=== PATIENT | male | born 1955 | race Hispanic/Latino ===

== ENCOUNTER → 2018-01-16 | Outpatient (CLI) | payer MEDICAID | END | disposition home or self-care (01) | LOC: SHCH 15:12 | PROVIDERS: ATTEND Internal Medicine Cardiovascular Disease | DX: I87.2 Venous insufficiency (chronic) (peripheral) (principal) | CPT/HCPCS: 93970 ==

== ENCOUNTER 2018-01-18 17:25 | Emergency (ER) | payer MEDICAID, MEDICARE ==
[2018-01-18 18:06] LABS: BASOPHILS % (AUTO) 0.4 % (0.0-5.0); EOSINOPHILS % (AUTO) 2.5 % (0.0-8.0); HEMATOCRIT 45.9 % (42-54); LYMPHOCYTES % (AUTO) 24.1 % (21.0-51.0); MEAN CORPUSCULAR HEMOGLOBIN 30.7 pg (27.0-33.0); MEAN CORPUSCULAR HGB CONC 33.8 g/dL (32.0-36.0); MEAN CORPUSCULAR VOLUME 90.9 fL (79-99); MONOCYTES % (AUTO) 5.6 % (3.0-13.0); NEUTROPHILS % (AUTO) 67.4 % (40.0-77.0); PLATELET COUNT (AUTO) 208 K/uL (130-400); RED BLOOD CELL COUNT(AUTO) 5.05 MIL/uL (4.50-6.20); RED CELL DISTRIBUTION WIDTH 14.1 % (11.0-15.5); WHITE BLOOD COUNT (AUTO) 8.6 K/uL (4.8-10.8)
[2018-01-18 18:10] LABS: CREATININE 0.9 mg/dL (0.5-1.5); POTASSIUM 3.7 mmol/L (3.5-5.1)
[2018-01-18 18:17] LABS: ALBUMIN 3.5 g/dL (3.5-5.0); BILIRUBIN,TOTAL 0.5 mg/dL (0.2-1.0); PHENYTOIN (DILANTIN) 0.6 mcg/mL (10.0-20.0); TOTAL PROTEIN, SERUM 7.2 g/dL (6.0-8.3)
[2018-01-18] MEDS ORDERED: TETANUS/DIPHTHERIA TOXOID [ADULT] 0.5 ML VIAL IM ONE (18:41)
[2018-01-18] MEDS ORDERED: FOSPHENYTOIN SODIUM 500 MG/10ML VIAL IJ ONE (18:51)
[2018-01-18] MEDS ORDERED: SODIUM CHLORIDE 0.9% 100 ML IV ONE (18:51)
== END 2018-01-18 21:17 | disposition home or self-care (01) ==
LOC: EDH 17:25
DX: S10.81XA Abrasion of other specified part of neck, initial encounter (principal); G40.909 Epilepsy, unspecified, not intractable, without status epilepticus; R89.2 Abnormal level of other drugs, medicaments and biological substances in specimens from other organs, systems and tissues; X58.XXXA Exposure to other specified factors, initial encounter; Y93.89 Activity, other specified; Y92.89 Other specified places as the place of occurrence of the external cause; Y99.8 Other external cause status
CPT/HCPCS: 36415; 70450; 80053; 80185; 85025; 90471; 90714; 93005; 96365; 96366; 99285; Q2009

== ENCOUNTER → 2018-08-18 | Outpatient (CLI) | payer MEDICAID | END | disposition home or self-care (01) | LOC: OIH 13:39 | PROVIDERS: ATTEND Internal Medicine | DX: R91.8 Other nonspecific abnormal finding of lung field (principal); R91.1 Solitary pulmonary nodule; M47.815 Spondylosis without myelopathy or radiculopathy, thoracolumbar region; I70.0 Atherosclerosis of aorta | CPT/HCPCS: 71046 ==

== ENCOUNTER → 2019-03-27 | Outpatient (CLI) | payer MEDICAID | LOC: OIH 14:05 | PROVIDERS: ATTEND Anesthesiology | DX: M19.012 Primary osteoarthritis, left shoulder (principal); M19.011 Primary osteoarthritis, right shoulder | CPT/HCPCS: 73030 ==

== ENCOUNTER 2019-07-05 06:30 | Emergency (ER) | payer MEDICAID ==
[2019-07-05] MEDS ORDERED: FENTANYL 25 MCG/HR PATCH TD ONE (07:32)
== END 2019-07-05 07:48 | disposition home or self-care (01) ==
LOC: EDH 06:30
DX: G89.29 Other chronic pain (principal); M54.5 Low back pain; T40.691A Poisoning by other narcotics, accidental (unintentional), initial encounter; E78.5 Hyperlipidemia, unspecified; I10 Essential (primary) hypertension; Y92.89 Other specified places as the place of occurrence of the external cause

== ENCOUNTER 2019-11-12 12:16 | Emergency (ER) | payer MEDICAID ==
[2019-11-12] MEDS ORDERED: FENTANYL 50 MCG/HR PATCH TD ONE (13:00)
== END 2019-11-12 13:38 | disposition home or self-care (01) ==
LOC: EDH 12:16
DX: M54.5 Low back pain (principal); E78.5 Hyperlipidemia, unspecified; I10 Essential (primary) hypertension; Z72.0 Tobacco use

== ENCOUNTER 2019-11-17 09:37 | Emergency (ER) | payer MEDICAID ==
[2019-11-17] MEDS ORDERED: IBUPROFEN 400 MG TABLET ONE (10:00)
[2019-11-17] MEDS ORDERED: IBUPROFEN 200 MG TAB ONE (10:00)
[2019-11-17] MEDS ORDERED: CYCLOBENZAPRINE HCL 10 MG TABLET ONE (10:00)
== END 2019-11-17 10:38 | disposition left against medical advice (07) ==
LOC: EDH 09:37
DX: G89.29 Other chronic pain (principal); M54.5 Low back pain; E78.5 Hyperlipidemia, unspecified; I10 Essential (primary) hypertension; Z72.0 Tobacco use
CPT/HCPCS: 99281

== ENCOUNTER 2019-11-18 07:25 | Emergency (ER) | payer MEDICAID ==
[2019-11-18] MEDS ORDERED: ASPIRIN 325 MG TABLET ONE (07:53)
[2019-11-18 09:25] LABS: BASOPHILS % (AUTO) 0.6 % (0.0-5.0); EOSINOPHILS % (AUTO) 2.8 % (0.0-8.0); HEMATOCRIT 48.9 % (42-54); LYMPHOCYTES % (AUTO) 26.7 % (21.0-51.0); MEAN CORPUSCULAR HEMOGLOBIN 30.3 pg (27.0-33.0); MEAN CORPUSCULAR HGB CONC 34.6 g/dL (32.0-36.0); MEAN CORPUSCULAR VOLUME 87.6 fL (79-99); MONOCYTES % (AUTO) 5.6 % (3.0-13.0); NEUTROPHILS % (AUTO) 63.6 % (40.0-77.0); PLATELET COUNT (AUTO) 207 K/uL (130-400); RED BLOOD CELL COUNT(AUTO) 5.58 MIL/uL (4.50-6.20); RED CELL DISTRIBUTION WIDTH 13.8 % (11.0-15.5); WHITE BLOOD COUNT (AUTO) 13.1 K/uL (4.8-10.8)
[2019-11-18 10:39] LABS: CREATININE 0.9 mg/dL (0.5-1.5); POTASSIUM 3.9 mmol/L (3.5-5.1)
[2019-11-18 10:45] LABS: ALBUMIN 3.4 g/dL (3.5-5.0); BILIRUBIN,TOTAL 0.4 mg/dL (0.2-1.0); TOTAL PROTEIN, SERUM 6.7 g/dL (6.0-8.3)
== END 2019-11-18 10:38 | disposition left against medical advice (07) ==
LOC: EDH 07:25
DX: G89.29 Other chronic pain (principal); M54.5 Low back pain; R07.89 Other chest pain; E78.5 Hyperlipidemia, unspecified; I10 Essential (primary) hypertension; Z72.0 Tobacco use
CPT/HCPCS: 36415; 71045; 80053; 82550; 84484; 85025; 93005

== ENCOUNTER 2019-12-16 18:47 | Emergency (ER) | payer MEDICAID ==
[2019-12-16] MEDS ORDERED: TETRACAINE HCL 0.5% 4 ML OPHTH SOLN ONE (19:26)
[2019-12-16] MEDS ORDERED: NA BORATE/BORIC AC/H2O/NACL 120 ML OPHTH IRRIG SOLN ONE (19:26)
[2019-12-16] MEDS ORDERED: FLUORESCEIN SODIUM 1 STRIP STRIP ONE (19:27)
[2019-12-16] MEDS ORDERED: TETANUS/DIPHTHERIA TOXOID [ADULT] 0.5 ML VIAL IM ONE (19:39)
== END 2019-12-16 20:08 | disposition home or self-care (01) ==
LOC: EDH 18:47
DX: S05.01XA Injury of conjunctiva and corneal abrasion without foreign body, right eye, initial encounter (principal); I10 Essential (primary) hypertension; E78.5 Hyperlipidemia, unspecified; Z72.0 Tobacco use; X58.XXXA Exposure to other specified factors, initial encounter; Y93.89 Activity, other specified; Y92.89 Other specified places as the place of occurrence of the external cause; Y99.8 Other external cause status
CPT/HCPCS: 90471; 90714

== ENCOUNTER 2020-04-06 03:32 | Emergency (ER) | payer MEDICAID ==
[2020-04-06] MEDS ORDERED: KETOROLAC TROMETHAMINE 15MG/ML ONE (04:08)
[2020-04-06] MEDS ORDERED: FENTANYL 75 MCG/HR PATCH TD ONE (04:09)
== END 2020-04-06 04:48 | disposition home or self-care (01) ==
LOC: EDH 03:32
DX: M54.2 Cervicalgia (principal); E78.5 Hyperlipidemia, unspecified; I10 Essential (primary) hypertension
CPT/HCPCS: 96374; 99283; J1885

== ENCOUNTER 2020-11-29 05:21 | Emergency (ER) | payer MEDICAID ==
[2020-11-29] MEDS ORDERED: HYDROMORPHONE 1 MG/1 ML AMP ONE (06:42)
== END 2020-11-29 06:53 | disposition home or self-care (01) ==
LOC: EDH 05:21
DX: G89.29 Other chronic pain (principal); M54.9 Dorsalgia, unspecified; M54.2 Cervicalgia; E78.5 Hyperlipidemia, unspecified; I10 Essential (primary) hypertension; Z72.0 Tobacco use
CPT/HCPCS: 96372; 99283; J1170

== ENCOUNTER 2021-02-07 01:07 | Emergency (ER) | payer MEDICAID ==
[~2021-02-07] VITALS: Ht 172.7 cm; Wt 77.1 kg
[2021-02-07 01:50] VITALS: BP 141/72
[2021-02-07] MEDS ORDERED: DIAZEPAM 2 MG TAB PO ONE (02:00)
[2021-02-07] MEDS ORDERED: LIDOCAINE 5% TOPICAL PATCH TP ONE (02:00)
[2021-02-07] MEDS ORDERED: KETOROLAC 60 MG VIAL (30MG/ML) IM ONE (02:00)
== END 2021-02-07 03:06 | disposition home or self-care (01) ==
LOC: EDH 01:07
DX: M54.2 Cervicalgia (principal); G89.29 Other chronic pain; M54.5 Low back pain; I10 Essential (primary) hypertension; Z79.1 Long term (current) use of non-steroidal anti-inflammatories (NSAID)
CPT/HCPCS: 96372; 99283; J1885

== ENCOUNTER 2021-10-29 02:43 | Emergency (ER) | payer OTHER, MEDICARE ==
[~2021-10-29] VITALS: Ht 167.6 cm; Wt 79.4 kg
[2021-10-29 03:24] LABS: APPEARANCE,URINE Clear (CLEAR); BILIRUBIN,URINE Negative (NEGATIVE); COLOR,URINE Yellow (YELLOW); GLUCOSE, URINE (UA) Negative (NEGATIVE); KETONES,URINE Negative (NEGATIVE); LEUKOCYTE ESTERASE ,URINE Negative (NEGATIVE); NITRATE,URINE Negative (NEGATIVE); OCCULT BLOOD,URINE Negative (NEGATIVE); PROTEIN,URINE Negative (NEGATIVE)
[2021-10-29 03:38] LABS: BASOPHILS % (AUTO) 0.4 % (0.0-5.0); EOSINOPHILS % (AUTO) 0.5 % (0.0-8.0); HEMATOCRIT 48.1 % (42-54); LYMPHOCYTES % (AUTO) 25.7 % (21.0-51.0); MEAN CORPUSCULAR HEMOGLOBIN 29.9 pg (27.0-33.0); MEAN CORPUSCULAR HGB CONC 32.4 g/dL (32.0-36.0); MEAN CORPUSCULAR VOLUME 92.3 fL (79-99); MONOCYTES % (AUTO) 8.6 % (3.0-13.0); NEUTROPHILS % (AUTO) 63.5 % (40.0-77.0); PLATELET COUNT (AUTO) 183 K/uL (130-400); RED BLOOD CELL COUNT(AUTO) 5.21 MIL/uL (4.50-6.20); RED CELL DISTRIBUTION WIDTH 15.3 % (11.0-15.5); WHITE BLOOD COUNT (AUTO) 11.5 K/uL (4.8-10.8)
[2021-10-29 03:49] LABS: CREATININE 0.8 mg/dL (0.5-1.5); POTASSIUM 3.9 mmol/L (3.5-5.1)
[2021-10-29 03:56] LABS: ALBUMIN 3.2 g/dL (3.5-5.0); BILIRUBIN,TOTAL 0.8 mg/dL (0.2-1.0); TOTAL PROTEIN, SERUM 6.4 g/dL (6.0-8.3)
[2021-10-29 04:56] VITALS: BP 126/59
[2021-10-29] MEDS ORDERED: FENTANYL 75 MCG/HR PATCH TD ONE (05:00)
[2021-10-29 05:16] LABS: MAGNESIUM 2.4 mg/dL (1.80-2.40); THYROID STIMULATING HORMONE 4.46 uIU/mL (0.36-3.74)
== END 2021-10-29 06:10 | disposition home or self-care (01) ==
LOC: EDH 02:43
DX: G89.29 Other chronic pain (principal); R53.1 Weakness; R94.6 Abnormal results of thyroid function studies; I10 Essential (primary) hypertension
CPT/HCPCS: 36415; 71045; 80053; 81003; 82550; 83735; 83880; 84443; 84484; 85025; 93005

== ENCOUNTER 2021-11-21 23:09 | Emergency (ER) | payer MEDICARE ==
[~2021-11-21] VITALS: Ht 167.6 cm; Wt 79.4 kg
[2021-11-21 23:18] VITALS: BP 94/43
[2021-11-21] MEDS ORDERED: CYCL10TA16 PO (23:47)
[2021-11-21] MEDS ORDERED: GABA300C PO (23:47)
[2021-11-22] MEDS ORDERED: FENTANYL CITRATE PF 50 MCG/1 ML 2ML VIAL IVP ONE
[2021-11-22] MEDS ORDERED: CYCLOBENZAPRINE HCL 10 MG TABLET PO ONE
== END 2021-11-22 00:10 | disposition home or self-care (01) ==
LOC: EDH 23:09
DX: M54.6 Pain in thoracic spine (principal); M54.50 Low back pain, unspecified; M54.10 Radiculopathy, site unspecified; M79.603 Pain in arm, unspecified; M79.606 Pain in leg, unspecified; I10 Essential (primary) hypertension; Z98.890 Other specified postprocedural states
CPT/HCPCS: 96374; 99283; J3010

== ENCOUNTER 2021-11-28 01:45 | Emergency (ER) | payer MEDICARE ==
[~2021-11-28] VITALS: Ht 167.6 cm; Wt 80.7 kg
[~2021-11-28 01:45] MED LIST: CYCL10TA16 PO; GABA300C PO
[2021-11-28] MEDS ORDERED: OXYCODONE/ACETAMIN 5/325MG TAB PO ONE (03:00)
[2021-11-28] MEDS ORDERED: PERCT10 PO ×2 (03:20→03:21)
[2021-11-28 03:26] VITALS: BP 150/71
== END 2021-11-28 03:27 | disposition home or self-care (01) ==
LOC: EDH 01:45
DX: G89.29 Other chronic pain (principal); M54.2 Cervicalgia; I10 Essential (primary) hypertension

== ENCOUNTER 2021-11-28 11:47 | Emergency (ER) | payer MEDICARE ==
[~2021-11-28] VITALS: Ht 167.6 cm; Wt 79.4 kg
[~2021-11-28 11:47] MED LIST changes: +PERCT10 PO
[2021-11-28] MEDS ORDERED: HYDROCODONE/ACETAMINOPHEN 10/325 MG TAB PO ONE (13:00)
[2021-11-28 13:09] VITALS: BP 158/78
== END 2021-11-28 13:17 | disposition home or self-care (01) ==
LOC: EDH 11:47
DX: G89.29 Other chronic pain (principal); M54.6 Pain in thoracic spine; I10 Essential (primary) hypertension

== ENCOUNTER 2021-11-29 01:27 | Emergency (ER) | payer OTHER, MEDICARE ==
[~2021-11-29] VITALS: Ht 167.6 cm; Wt 80.3 kg
[2021-11-29 01:42] VITALS: BP 151/80
[2021-11-29] MEDS ORDERED: OXYCODONE/ACETAMIN 5/325MG TAB ONE (03:04)
[2021-11-29] MEDS ORDERED: OXYCODONE/ACETAMIN 5/325MG TAB PO ONE (03:30)
== END 2021-11-29 03:13 | disposition home or self-care (01) ==
LOC: EDH 01:27
DX: G89.29 Other chronic pain (principal); M54.9 Dorsalgia, unspecified; M54.2 Cervicalgia; E78.00 Pure hypercholesterolemia, unspecified; I10 Essential (primary) hypertension; Z98.890 Other specified postprocedural states; Z79.899 Other long term (current) drug therapy

== ENCOUNTER 2021-11-29 11:09 | Emergency (ER) | payer MEDICARE ==
[~2021-11-29] VITALS: Ht 167.6 cm; Wt 79.4 kg
[2021-11-29 11:13] VITALS: BP 142/54
[2021-11-29] MEDS ORDERED: LORAZEPAM 2 MG/ML 1 ML VIAL IVP ONE (13:30)
== END 2021-11-29 14:05 | disposition left against medical advice (07) ==
LOC: EDH 11:09
DX: G89.29 Other chronic pain (principal); M54.6 Pain in thoracic spine; Z53.21 Procedure and treatment not carried out due to patient leaving prior to being seen by health care provider

== ENCOUNTER 2021-11-29 15:13 | Emergency (ER) | payer OTHER, MEDICARE ==
[~2021-11-29] VITALS: Ht 167.6 cm; Wt 79.4 kg
[2021-11-29 15:18] VITALS: BP 129/69
== END 2021-11-29 17:31 | disposition home or self-care (01) ==
LOC: EDH 15:13
DX: G89.29 Other chronic pain (principal); M54.6 Pain in thoracic spine; Z53.21 Procedure and treatment not carried out due to patient leaving prior to being seen by health care provider

== ENCOUNTER 2022-01-21 03:26 | Emergency (ER) | payer OTHER, MEDICARE ==
[~2022-01-21] VITALS: Ht 167.6 cm; Wt 82.6 kg
[2022-01-21] MEDS ORDERED: KETOROLAC 15MG/ML VIAL (15MG/ML) IV ONE (03:30)
[2022-01-21] MEDS ORDERED: FENTANYL 50 MCG/HR PATCH TD SCH (03:30)
[2022-01-21] MEDS ORDERED: FUROSEMIDE 40MG VIAL IV ONE (03:30)
[2022-01-21 03:42] LABS: BASOPHILS % (AUTO) 0.6 % (0.0-5.0); EOSINOPHILS % (AUTO) 3.6 % (0.0-8.0); HEMATOCRIT 46.2 % (42-54); LYMPHOCYTES % (AUTO) 23.2 % (21.0-51.0); MEAN CORPUSCULAR HGB CONC 34.4 g/dL (32.0-36.0); MONOCYTES % (AUTO) 9.6 % (3.0-13.0); NEUTROPHILS % (AUTO) 62.6 % (40.0-77.0); PLATELET COUNT (AUTO) 196 K/uL (130-400); RED BLOOD CELL COUNT(AUTO) 4.97 MIL/uL (4.50-6.20); RED CELL DISTRIBUTION WIDTH 13.6 % (11.0-15.5); WHITE BLOOD COUNT (AUTO) 9.1 K/uL (4.8-10.8)
[2022-01-21 03:56] LABS: CREATININE 0.3 mg/dL (0.5-1.5); POTASSIUM 5.6 mmol/L (3.5-5.1)
[2022-01-21 04:00] LABS: ALBUMIN 3.4 g/dL (3.5-5.0); TOTAL PROTEIN, SERUM 7.1 g/dL (6.0-8.3)
[2022-01-21 04:13] LABS: APPEARANCE,URINE CLEAR (CLEAR); BILIRUBIN,URINE NEGATIVE (NEGATIVE); COLOR,URINE YELLOW (YELLOW); GLUCOSE, URINE (UA) NEGATIVE (NEGATIVE); KETONES,URINE NEGATIVE (NEGATIVE); LEUKOCYTE ESTERASE ,URINE NEGATIVE (NEGATIVE); NITRATE,URINE NEGATIVE (NEGATIVE); PROTEIN,URINE NEGATIVE (NEGATIVE)
[2022-01-21 04:16] LABS: OCCULT BLOOD,URINE NEGATIVE (NEGATIVE)
[2022-01-21 04:26] LABS: B-TYPE NATRIURETIC PEPTIDE 39 pg/mL (0-100)
[2022-01-21] MEDS ORDERED: 0.9%NACL 1000ML 1,000 ML IV ONE (04:30)
[2022-01-21 04:40] VITALS: BP 156/88
== END 2022-01-21 05:01 | disposition home or self-care (01) ==
LOC: EDH 03:26
DX: G89.29 Other chronic pain (principal); M54.6 Pain in thoracic spine; M54.50 Low back pain, unspecified; E87.1 Hypo-osmolality and hyponatremia; E78.00 Pure hypercholesterolemia, unspecified; E86.0 Dehydration; I10 Essential (primary) hypertension; Z98.890 Other specified postprocedural states; Z79.899 Other long term (current) drug therapy
CPT/HCPCS: 99284; 84484; 80053; 83880; 85025; 81003; 36415; 96374; 96361; 96375; J7030; J1940; J1885

== ENCOUNTER 2022-01-27 02:45 | Emergency (ER) | payer OTHER, MEDICARE ==
[~2022-01-27] VITALS: Ht 167.6 cm; Wt 76.2 kg
[2022-01-27 02:51] VITALS: BP 148/76
[2022-01-27] MEDS ORDERED: FENTANYL 75 MCG/HR PATCH TD ONE (03:31)
[2022-01-27] MEDS ORDERED: FENTANYL 12 MCG/HR PATCH TD SCH (04:00)
== END 2022-01-27 03:43 | disposition home or self-care (01) ==
LOC: EDH 02:45
DX: G89.4 Chronic pain syndrome (principal); K42.9 Umbilical hernia without obstruction or gangrene; M19.90 Unspecified osteoarthritis, unspecified site; E78.00 Pure hypercholesterolemia, unspecified; G62.9 Polyneuropathy, unspecified; I10 Essential (primary) hypertension; Z98.890 Other specified postprocedural states; Z79.899 Other long term (current) drug therapy

== ENCOUNTER 2022-02-28 02:14 | Emergency (ER) | payer OTHER, MEDICARE ==
[~2022-02-28] VITALS: Ht 167.6 cm; Wt 77.6 kg
[2022-02-28 02:16] VITALS: BP 133/69
[2022-02-28] MEDS ORDERED: FENTANYL 75 MCG/HR PATCH TD SCH (03:30)
== END 2022-02-28 03:15 | disposition home or self-care (01) ==
LOC: EDH 02:14
DX: G89.4 Chronic pain syndrome (principal); M54.6 Pain in thoracic spine; E78.00 Pure hypercholesterolemia, unspecified; I10 Essential (primary) hypertension; G62.9 Polyneuropathy, unspecified; F17.200 Nicotine dependence, unspecified, uncomplicated; Z79.899 Other long term (current) drug therapy; Z98.890 Other specified postprocedural states

== ENCOUNTER 2022-03-27 02:10 | Emergency (ER) | payer OTHER, MEDICARE ==
[~2022-03-27] VITALS: Ht 167.6 cm; Wt 73.9 kg
[2022-03-27 02:49] VITALS: BP 125/72
[2022-03-27] MEDS ORDERED: FENTANYL 75 MCG/HR PATCH TD SCH (03:30)
== END 2022-03-27 03:43 | disposition home or self-care (01) ==
LOC: EDH 02:10
DX: G89.4 Chronic pain syndrome (principal); I10 Essential (primary) hypertension; F17.210 Nicotine dependence, cigarettes, uncomplicated; E78.00 Pure hypercholesterolemia, unspecified
CPT/HCPCS: 99282

== ENCOUNTER 2022-03-31 12:03 | Emergency (ER) | payer OTHER, MEDICARE ==
[~2022-03-31] VITALS: Ht 167.6 cm; Wt 68.0 kg
[2022-03-31] MEDS ORDERED: 0.9%NACL 1000ML 1,000 ML IV ONE (12:30)
[2022-03-31] MEDS ORDERED: MAG/ALUM/SIMETH 30 ML UDCUP PO ONE (12:30)
[2022-03-31] MEDS ORDERED: LIDOCAINE HCL 2% VISCOUS 15 ML UDCUP PO ONE (12:30)
[2022-03-31] MEDS ORDERED: DICYCLOMINE HCL 10 MG/5 ML ML PO ONE (12:30)
[2022-03-31] MEDS ORDERED: FAMOTIDINE 20MG VIAL IV ONE (12:30)
[2022-03-31] MEDS ORDERED: ONDANSETRON 4MG TABLET PO ONE (12:30)
[2022-03-31 12:32] LABS: APPEARANCE,URINE CLEAR (CLEAR); BILIRUBIN,URINE NEGATIVE (NEGATIVE); COLOR,URINE YELLOW (YELLOW); GLUCOSE, URINE (UA) NEGATIVE (NEGATIVE); KETONES,URINE NEGATIVE (NEGATIVE); LEUKOCYTE ESTERASE ,URINE NEGATIVE (NEGATIVE); NITRATE,URINE NEGATIVE (NEGATIVE); OCCULT BLOOD,URINE TRACE-INTACT (NEGATIVE); PROTEIN,URINE NEGATIVE (NEGATIVE); UROBILINOGEN,URINE 0.2 mg/dL (0.2-1.0)
[2022-03-31 12:35] LABS: BASOPHILS % (AUTO) 0.5 % (0.0-5.0); EOSINOPHILS % (AUTO) 3.9 % (0.0-8.0); LYMPHOCYTES % (AUTO) 20.5 % (21.0-51.0); MEAN CORPUSCULAR HEMOGLOBIN 32.2 pg (27.0-33.0); MEAN CORPUSCULAR HGB CONC 34.7 g/dL (32.0-36.0); MEAN CORPUSCULAR VOLUME 92.8 fL (79-99); MONOCYTES % (AUTO) 11.5 % (3.0-13.0); NEUTROPHILS % (AUTO) 63.2 % (40.0-77.0); PLATELET COUNT (AUTO) 190 K/uL (130-400); RED BLOOD CELL COUNT(AUTO) 4.85 MIL/uL (4.50-6.20); RED CELL DISTRIBUTION WIDTH 13.3 % (11.0-15.5); WHITE BLOOD COUNT (AUTO) 7.9 K/uL (4.8-10.8)
[2022-03-31 12:41] LABS: CREATININE 0.8 mg/dL (0.5-1.5); POTASSIUM 3.6 mmol/L (3.5-5.1)
[2022-03-31 12:45] LABS: ALBUMIN 3.7 g/dL (3.5-5.0); TOTAL PROTEIN, SERUM 7.2 g/dL (6.0-8.3)
[2022-03-31] MEDS ORDERED: ONDA4TAB10 PO (13:18)
[2022-03-31] MEDS ORDERED: LEVO-70 PO (13:18)
[2022-03-31] MEDS ORDERED: DICY20TA2 PO (13:18)
[2022-03-31] MEDS ORDERED: METR375C2 PO (13:18)
[2022-03-31] MEDS ORDERED: METRONIDAZOLE 500 MG TABLET PO SCH (13:30)
[2022-03-31] MEDS ORDERED: LEVOFLOXACIN 500 MG TABLET PO SCH (13:30)
[2022-03-31 13:42] VITALS: BP 117/60
== END 2022-03-31 13:48 | disposition home or self-care (01) ==
LOC: EDH 12:03
DX: I95.1 Orthostatic hypotension (principal); E87.1 Hypo-osmolality and hyponatremia; K52.9 Noninfective gastroenteritis and colitis, unspecified; R11.2 Nausea with vomiting, unspecified; E78.00 Pure hypercholesterolemia, unspecified; I10 Essential (primary) hypertension; G62.9 Polyneuropathy, unspecified; F17.200 Nicotine dependence, unspecified, uncomplicated; Z98.890 Other specified postprocedural states; Z79.899 Other long term (current) drug therapy
CPT/HCPCS: 99284; 96374; 71045; 96361; 84484; 80053; 83690; 85025; 81003; 36415; Q0162; J3490; J7030

== ENCOUNTER 2022-04-23 02:12 | Emergency (ER) | payer OTHER, MEDICARE ==
[~2022-04-23] VITALS: Ht 167.6 cm; Wt 73.9 kg
[~2022-04-23 02:12] MED LIST changes: +DICY20TA2 PO; +LEVO-70 PO; +METR375C2 PO; +ONDA4TAB10 PO
[2022-04-23 02:59] VITALS: BP 139/74
[2022-04-23] MEDS ORDERED: FENTANYL 75 MCG/HR PATCH TD SCH (03:00)
== END 2022-04-23 03:02 | disposition home or self-care (01) ==
LOC: EDH 02:12
DX: G89.4 Chronic pain syndrome (principal); E78.00 Pure hypercholesterolemia, unspecified; I10 Essential (primary) hypertension; M19.90 Unspecified osteoarthritis, unspecified site; Z79.899 Other long term (current) drug therapy; F17.200 Nicotine dependence, unspecified, uncomplicated

== ENCOUNTER 2022-04-28 02:19 | Emergency (ER) | payer OTHER, MEDICARE ==
[~2022-04-28] VITALS: Ht 167.6 cm; Wt 75.3 kg
[2022-04-28 02:46] VITALS: BP 112/65
== END 2022-04-28 03:04 | disposition home or self-care (01) ==
LOC: EDH 02:19
DX: G89.4 Chronic pain syndrome (principal); E78.00 Pure hypercholesterolemia, unspecified; I10 Essential (primary) hypertension; F17.200 Nicotine dependence, unspecified, uncomplicated
CPT/HCPCS: 99281; 99282

== ENCOUNTER 2022-05-18 01:24 | Emergency (ER) | payer OTHER, MEDICARE ==
[~2022-05-18] VITALS: Ht 170.2 cm; Wt 73.9 kg
[2022-05-18 01:44] VITALS: BP 118/53
[2022-05-18] MEDS ORDERED: FENTANYL 75 MCG/HR PATCH TD SCH (02:00)
== END 2022-05-18 02:03 | disposition home or self-care (01) ==
LOC: EDH 01:24
DX: G89.4 Chronic pain syndrome (principal); M19.90 Unspecified osteoarthritis, unspecified site; E78.00 Pure hypercholesterolemia, unspecified; F17.200 Nicotine dependence, unspecified, uncomplicated; I10 Essential (primary) hypertension; Z98.890 Other specified postprocedural states; Z79.899 Other long term (current) drug therapy

== ENCOUNTER 2022-05-20 23:44 | Emergency (ER) | payer OTHER, MEDICARE ==
[~2022-05-20] VITALS: Ht 167.6 cm; Wt 74.8 kg
[2022-05-21] MEDS ORDERED: FENTANYL 100 MCG/HR PATCH TD SCH (01:00)
[2022-05-21] MEDS ORDERED: FENTANYL 12 MCG/HR PATCH TD SCH (01:00)
[2022-05-21 01:24] VITALS: BP 124/65
[2022-05-21] MEDS ORDERED: FENTANYL 50 MCG/HR PATCH TD SCH (01:30)
== END 2022-05-21 01:45 | disposition home or self-care (01) ==
LOC: EDH 23:44
DX: G89.4 Chronic pain syndrome (principal); E78.00 Pure hypercholesterolemia, unspecified; F17.200 Nicotine dependence, unspecified, uncomplicated; I10 Essential (primary) hypertension; Z79.899 Other long term (current) drug therapy; Z98.890 Other specified postprocedural states

== ENCOUNTER 2022-06-23 02:30 | Emergency (ER) | payer OTHER, MEDICARE ==
[~2022-06-23] VITALS: Ht 170.2 cm; Wt 75.3 kg
[2022-06-23 02:35] VITALS: BP 145/77
[2022-06-23] MEDS ORDERED: ACETAMINOPHEN 325 MG TAB PO ONE (04:00)
== END 2022-06-23 04:12 | disposition home or self-care (01) ==
LOC: EDH 02:30
DX: G89.4 Chronic pain syndrome (principal); M54.6 Pain in thoracic spine; E78.00 Pure hypercholesterolemia, unspecified; I10 Essential (primary) hypertension; F17.200 Nicotine dependence, unspecified, uncomplicated

== ENCOUNTER 2022-06-25 01:48 | Emergency (ER) | payer OTHER, MEDICARE ==
[~2022-06-25] VITALS: Ht 167.6 cm; Wt 75.7 kg
[2022-06-25 01:59] VITALS: BP 146/74
== END 2022-06-25 02:50 | disposition home or self-care (01) ==
LOC: EDH 01:48
DX: M54.6 Pain in thoracic spine (principal); Z53.21 Procedure and treatment not carried out due to patient leaving prior to being seen by health care provider

== ENCOUNTER 2022-07-20 11:38 | Emergency (ER) | payer OTHER, MEDICARE ==
[~2022-07-20] VITALS: Ht 167.6 cm; Wt 78.5 kg
[2022-07-20 13:00] VITALS: BP 148/82
[2022-07-20] MEDS ORDERED: ORPHENADRINE CITRATE 30 MG/ML ML IM ONE (13:00)
[2022-07-20] MEDS ORDERED: KETOROLAC 30MG VIAL (30MG/ML) IM ONE (13:00)
[2022-07-20] MEDS ORDERED: METH-662 PO (13:59)
[2022-07-20] MEDS ORDERED: DICL75TA5 PO (13:59)
== END 2022-07-20 14:14 | disposition home or self-care (01) ==
LOC: EDH 11:38
DX: G89.4 Chronic pain syndrome (principal); I10 Essential (primary) hypertension; F17.200 Nicotine dependence, unspecified, uncomplicated; E78.00 Pure hypercholesterolemia, unspecified; Z98.890 Other specified postprocedural states; Z79.899 Other long term (current) drug therapy
CPT/HCPCS: 99284; 96372; 93005; J1885; J2360

== ENCOUNTER 2022-07-22 14:00 | Emergency (ER) | payer OTHER, MEDICARE ==
[~2022-07-22] VITALS: Ht 167.6 cm; Wt 78.5 kg
[~2022-07-22 14:00] MED LIST changes: +DICL75TA5 PO; +METH-662 PO
[2022-07-22] MEDS ORDERED: FENTANYL 12 MCG/HR PATCH TD ONE (15:00)
[2022-07-22] MEDS ORDERED: FENTANYL 75 MCG/HR PATCH TD SCH (15:30)
[2022-07-22 16:00] VITALS: BP 128/74
== END 2022-07-22 15:54 | disposition home or self-care (01) ==
LOC: EDH 14:00
DX: G89.29 Other chronic pain (principal); M54.9 Dorsalgia, unspecified; E78.00 Pure hypercholesterolemia, unspecified; I10 Essential (primary) hypertension; F17.200 Nicotine dependence, unspecified, uncomplicated
CPT/HCPCS: 99282

== ENCOUNTER → 2022-08-23 | Outpatient (CLI) | payer OTHER, MEDICARE ==
[~2022-08-23] MED LIST changes: +DOCU-116 PO; +POLY17PO4 PO
== END | disposition home or self-care (01) ==
LOC: RAH 12:39
PROVIDERS: ATTEND Family Medicine
DX: M47.22 Other spondylosis with radiculopathy, cervical region (principal)
CPT/HCPCS: 72141

== ENCOUNTER 2022-09-20 19:00 | Emergency (ER) | payer OTHER, MEDICARE ==
[~2022-09-20] VITALS: Ht 167.6 cm; Wt 76.7 kg
[2022-09-20 19:37] VITALS: BP 144/73
== END 2022-09-20 20:20 | disposition left against medical advice (07) ==
LOC: EDH 19:00
DX: M54.89 Other dorsalgia (principal); Z53.21 Procedure and treatment not carried out due to patient leaving prior to being seen by health care provider

== ENCOUNTER 2022-09-23 11:20 | Emergency (ER) | payer OTHER, MEDICARE ==
[~2022-09-23] VITALS: Ht 167.6 cm; Wt 76.7 kg
[2022-09-23 11:51] LABS: BASOPHILS % (AUTO) 0.6 % (0.0-5.0); EOSINOPHILS % (AUTO) 1.4 % (0.0-8.0); HEMATOCRIT 50.8 % (42-54); LYMPHOCYTES % (AUTO) 26.9 % (21.0-51.0); MEAN CORPUSCULAR HEMOGLOBIN 32.6 pg (27.0-33.0); MEAN CORPUSCULAR HGB CONC 34.3 g/dL (32.0-36.0); MEAN CORPUSCULAR VOLUME 95.3 fL (79-99); MONOCYTES % (AUTO) 11.1 % (3.0-13.0); NEUTROPHILS % (AUTO) 59.1 % (40.0-77.0); PLATELET COUNT (AUTO) 214 K/uL (130-400); RED BLOOD CELL COUNT(AUTO) 5.33 MIL/uL (4.50-6.20); RED CELL DISTRIBUTION WIDTH 13.4 % (11.0-15.5); WHITE BLOOD COUNT (AUTO) 12.5 K/uL (4.8-10.8)
[2022-09-23 12:07] LABS: TOTAL PROTEIN, SERUM 7.4 g/dL (6.0-8.3)
[2022-09-23 13:15] VITALS: BP 126/75
== END 2022-09-23 13:41 | disposition home or self-care (01) ==
LOC: EDH 11:20
DX: G89.29 Other chronic pain (principal); M54.9 Dorsalgia, unspecified; I10 Essential (primary) hypertension; E78.00 Pure hypercholesterolemia, unspecified; Z79.899 Other long term (current) drug therapy
CPT/HCPCS: 36415; 71045; 80053; 84484; 85025; 93005

== ENCOUNTER 2022-12-11 21:50 | Emergency (ER) | payer OTHER, MEDICARE ==
[~2022-12-11] VITALS: Ht 167.6 cm; Wt 78.0 kg
[2022-12-11 22:09] VITALS: BP 144/73
== END 2022-12-11 23:53 | disposition home or self-care (01) ==
LOC: EDH 21:50
DX: M54.9 Dorsalgia, unspecified (principal); Z53.21 Procedure and treatment not carried out due to patient leaving prior to being seen by health care provider
CPT/HCPCS: 99281

== ENCOUNTER 2023-01-09 14:50 | Emergency (ER) | payer OTHER, MEDICARE ==
[~2023-01-09] VITALS: Ht 167.6 cm; Wt 77.1 kg
[2023-01-09 19:35] VITALS: BP 130/69
[2023-01-09] MEDS ORDERED: MORPHINE 5 MG/ML VIAL (5MG OR GREATER DOSE) IM ONE (21:00)
[2023-01-09] MEDS ORDERED: DIAZEPAM 5 MG/ML 2 ML SYG IM ONE (21:00)
== END 2023-01-09 21:20 | disposition home or self-care (01) ==
LOC: EDH 14:50
DX: G89.29 Other chronic pain (principal); M54.6 Pain in thoracic spine; M19.90 Unspecified osteoarthritis, unspecified site; I10 Essential (primary) hypertension; E78.00 Pure hypercholesterolemia, unspecified; F17.200 Nicotine dependence, unspecified, uncomplicated
CPT/HCPCS: 99284; 96372 ×2; J2270; J3360

== ENCOUNTER 2023-08-23 10:50 | Emergency (ER) | payer OTHER, MEDICARE ==
[~2023-08-23] VITALS: Ht 167.6 cm; Wt 72.6 kg
[2023-08-23] MEDS ORDERED: LEVETIRACETAM 500 MG/5 ML SD VIAL IV SCH (11:00)
[2023-08-23] MEDS ORDERED: LEVETIRACETAM 500 MG/5 ML SD VIAL IV ONE (11:30)
[2023-08-23 11:37] LABS: BASOPHILS # (AUTO) 0.12 K/uL (0.00-0.20); BASOPHILS % (AUTO) 0.8 % (0.0-5.0); EOSINOPHILS # (AUTO) 0.09 K/uL (0.00-0.70); EOSINOPHILS % (AUTO) 0.6 % (0.0-8.0); HEMATOCRIT 41.7 % (42-54); IMMATURE GRANULOCYTE ABSOLUTE 0.53 K/uL (0-1); LYMPHOCYTES # (AUTO) 0.9 K/uL (1.0-4.8); LYMPHOCYTES % (AUTO) 5.9 % (21.0-51.0); MEAN CORPUSCULAR HEMOGLOBIN 35.2 pg (27.0-33.0); MEAN CORPUSCULAR HGB CONC 37.2 g/dL (32.0-36.0); MEAN CORPUSCULAR VOLUME 94.8 fL (79-99); MONOCYTES # (AUTO) 0.6 K/uL (0.1-1.0); MONOCYTES % (AUTO) 4.1 % (3.0-13.0); NEUTROPHILS # (AUTO) 13.4 K/uL (1.8-7.7); NEUTROPHILS % (AUTO) 85.2 % (40.0-77.0); PLATELET COUNT (AUTO) 315 K/uL (130-400); RED CELL DISTRIBUTION WIDTH 14.2 % (11.0-15.5); WHITE BLOOD COUNT (AUTO) 15.7 K/uL (4.8-10.8)
[2023-08-23 11:38] LABS: ALBUMIN 3.2 g/dL (3.5-5.0); BILIRUBIN,TOTAL 0.4 mg/dL (0.2-1.0); CREATININE 0.9 mg/dL (0.5-1.5); POTASSIUM 4.2 mmol/L (3.5-5.1); TOTAL PROTEIN, SERUM 7.3 g/dL (6.0-8.3)
[2023-08-23 13:14] LABS: APPEARANCE,URINE CLEAR (CLEAR); BILIRUBIN,URINE NEGATIVE (NEGATIVE); GLUCOSE, URINE (UA) NEGATIVE (NEGATIVE); KETONES,URINE NEGATIVE (NEGATIVE); LEUKOCYTE ESTERASE ,URINE NEGATIVE Leu/uL (NEGATIVE); NITRATE,URINE NEGATIVE (NEGATIVE); OCCULT BLOOD,URINE NEGATIVE (NEGATIVE); PROTEIN,URINE NEGATIVE (NEGATIVE); UROBILINOGEN,URINE 0.2 mg/dL (0.2-1.0)
[2023-08-23 13:16] LABS: AMPHET/METH SCREEN,URINE NEGATIVE (NEGATIVE); BARBITURATE SCREEN, URINE NEGATIVE (NEGATIVE); BENZODIAZEPINES SCREEN,URINE NEGATIVE (NEGATIVE); CANNABINOID SCREEN,URINE NEGATIVE (NEGATIVE); COCAINE SCREEN,URINE NEGATIVE (NEGATIVE); OPIATE SCREEN,URINE NEGATIVE (NEGATIVE); PHENCYCLIDINE SCREEN,URINE NEGATIVE (NEGATIVE)
[2023-08-23 13:17] LABS: ADD UA MICROSCOPIC NO; COLOR,URINE YELLOW (YELLOW)
[2023-08-23] MEDS ORDERED: LEVE-43 PO (13:26)
[2023-08-23 13:35] VITALS: BP 164/95; PULSE 81; RESP 17; O2SAT 96
== END 2023-08-23 13:53 | disposition home or self-care (01) ==
LOC: EDH 10:50
DX: R56.9 Unspecified convulsions (principal); E87.1 Hypo-osmolality and hyponatremia; E86.0 Dehydration; F17.200 Nicotine dependence, unspecified, uncomplicated
CPT/HCPCS: 99284; 96365; 84484; 80053; 80305; 85025; 81003; 36415; 93005; J1953

== ENCOUNTER 2025-03-23 07:41 | Day surgery (SDC) | payer OTHER, MEDICAID ==
[2025-03-23] VITALS (10 sets, daily range): BP systolic 98–137; BP diastolic 48–72; PULSE 68–85; RESP 14–18; TEMP 97.3–98.2
[~2025-03-23] VITALS: Ht 167.6 cm; Wt 58.1 kg
[~2025-03-23 07:41] MED LIST changes: -CYCL10TA16 PO; +CYMBALTA PEG; -DICL75TA5 PO; -DICY20TA2 PO; -DOCU-116 PO; +FERR-82 PEG; +FINA5TAB41 PO; +LACT-441 PO; +LEVE-43 PO; +LEVETIRACETAM PEG; -LEVO-70 PO; -METH-662 PO; +METH-811 PO; -METR375C2 PO; +MIDO5TAB4 PEG; +MULT-1203 PEG; -ONDA4TAB10 PO; -PERCT10 PO; +SENN8.6T32 PEG; +SIME80TA12 PEG; +THIA100T91 PEG
[2025-03-23] MEDS: 0.9%NACL 1000ML 1,000 ML IV ONE (10:19)
[2025-03-23] MEDS ORDERED: LIDOCAINE HCL 1% 20 ML VIAL ONE (10:26)
== END 2025-03-23 11:57 | disposition home or self-care (01) ==
LOC: DAH 07:41
PROVIDERS: ATTEND Internal Medicine Gastroenterology
DX: R13.12 Dysphagia, oropharyngeal phase (principal); Z93.1 Gastrostomy status; K29.50 Unspecified chronic gastritis without bleeding; K31.89 Other diseases of stomach and duodenum; K22.70 Barrett's esophagus without dysplasia; F41.9 Anxiety disorder, unspecified; F32.A Depression, unspecified; I10 Essential (primary) hypertension; G40.909 Epilepsy, unspecified, not intractable, without status epilepticus; E78.5 Hyperlipidemia, unspecified; J43.9 Emphysema, unspecified; G47.00 Insomnia, unspecified; K44.9 Diaphragmatic hernia without obstruction or gangrene; K59.04 Chronic idiopathic constipation; I73.9 Peripheral vascular disease, unspecified; Z86.0100 Personal history of colon polyps, unspecified; Z86.73 Personal history of transient ischemic attack (TIA), and cerebral infarction without residual deficits; Z88.6 Allergy status to analgesic agent; Z79.899 Other long term (current) drug therapy; Z98.890 Other specified postprocedural states
CPT/HCPCS: 43246; 43239; J7030; J2704; A4620; A4215; J3490

== ENCOUNTER 2025-04-06 23:40 | Emergency (ER) | payer OTHER, MEDICAID ==
[~2025-04-06] VITALS: Ht 167.6 cm; Wt 58.1 kg
--- NOTE | 2025-04-07 00:25 | ERN ---
ED Note History of Present Illness Stated Complaint: C/O PROBLEM TO PEG TUBE, PAIN TO AREA Chief Complaint: Other Problems Time Seen by MD: 00:15 Dictation: Patient is a 69 year old male with a past medical history of spinal quarter injury, trach and PEG, presents to the ER complaining of abdominal pain around the PEG tube. Patient said that he is not using the PEG tube too much since he has already tolerating oral diet. Allergies: Coded Allergies: No Known Drug Allergies (Verified Allergy, Unknown, 03/22/25) tramadol (Unverified Allergy, Unknown, 03/22/25) Home Meds Active Scripts Levetiracetam (Keppra) 500 Mg Tablet, 500 MG PO BID for 30 Days, #60 TAB 0 Refills Prov:DEWEY MCKAY LENO SEWER 08/23/23 Polyethylene Glycol 3350 (Miralax) 17 Gm Powd.pack, 17 GM PO DAILY, #1 CANISTER Prov:ALEXIS SALGUEROP 08/20/22 Gabapentin (Neurontin) 300 Mg Capsule, 300 MG PO BID, #60 CAP Prov:ROSETTA TEIXEIRA PA 11/21/21 Reported Medications Ferrous Sulfate (Iron) 325 Mg (65 Mg Iron) Tablet, 1 TAB PEG AM for 30 Days, #60 TAB 0 Refills 03/22/25 [Levetiracetam ] No Conflict Check, 500 MG PEG BID 03/22/25 Multivitamin (Multi Vitamin Daily) 1 Each Tablet, 1 TAB PEG DAILY for 30 Days, #30 TAB 0 Refills 03/22/25 Sennosides (Senna) 8.6 Mg Tablet, 1 TAB PEG AM for constipation for 25 Days, #100 TAB 0 Refills 03/22/25 Thiamine HCl (Vitamin B-1) 100 Mg Tablet, 1 TAB PEG DAILY for 30 Days, #30 TAB 0 Refills 03/22/25 Simethicone (Simethicone) 80 Mg Tab.chew, 1 TAB PEG Q6HPRN for 6 Days, #20 TAB 0 Refills 03/22/25 Midodrine HCl (Midodrine HCl) 5 Mg Tablet, 1 TAB PEG TID for 30 Days, #90 TAB 0 Refills 03/22/25 [Cymbalta] No Conflict Check, 20 MG PEG AM 03/22/25 Lactulose (Lactulose) 10 Gram/15 Ml Solution, 30 ML PO BID for constipation, #500 ML 0 Refills 03/22/25 Finasteride (Finasteride) 5 Mg Tablet, 1 TAB PO DAILY for 30 Days, #30 TAB 0 Refills 03/22/25 Methocarbamol (Methocarbamol) 500 Mg Tablet, 1 TAB PO Q6HPRN for 30 Days, #90 TAB 0 Refills 03/22/25 Past Medical History Past Medical History: Arthritis, COPD, High Cholesterol, Hypotension Additional Past Medical Hx: UMBILICAL HERNIA Surgical History: Other Surgical History Other: LOWER BACK SURGERY Family History: Negative Social History: Smokers, ETOH, Lives with family, Other Review of System Dictation NEGATIVE EXCEPT PER HPI Constitutional: Negative for fever,chills, and weight loss Eyes: Negative for injury, pain,redness, and discharge ENT: Negative for injury,pain or swelling Cardiovascular: denies chest pain, palpitations, and edema Respiratory: Negative for shortness of breath, cough, and wheezing, Abdomen/GI: Pain around the PEG tube Back: Negative for injury and pain : Negative for injury, bleeding and discharge MS/Extremity: Negative for injury and deformity Skin: Negative for rash, and discoloration Neuro: Negative for headache, weakness, numbness, tingling, and seizure Psych: Negative for suicide ideation, homicidal ideation, and hallucinations Initial Vital Sign VS Vital Signs Date Time Temp Pulse Resp B/P (MAP) Pulse Ox O2 Delivery O2 Flow Rate FiO2 04/06/25 23:49 98.1 76 20 110/57 96 Room Air 04/07/25 03:10 3 32 Physical Exam Dictation General: awake, alert, NAD Head/Face: Normocephalic, atraumatic Eyes: PERRL, EOMI, vision at baseline ENT: oral cavity clear, TMs clear, no signs of infection Neck: Trachea midline, supple, no nuchal rigidity Cardiovascular: RRR, normal S1/S2, No MRGs, no JVD Respiratory: CTAB, no respiratory distress, No rales or wheezes Abdomen: Soft , tender around the PEG tube. Skin: Warm, dry, normal turgor, no rash MS/Extremity: Pulses equal, no cyanosis, neurovascular intact, FROM Neuro: COAx4, GCS 15, strength 5/5, CN 2-12 intact, normal cerebellar exam, normal gait, Psych: Normal behavior, mood, and affect normal Results (Laboratory/Radiology) Laboratory/Radiology Laboratory Tests Test 04/07/25 00:32 White Blood Count 10.6 K/uL (4.8-10.8) Red Blood Count 4.47 MIL/uL (4.50-6.20) L Hemoglobin 11.4 g/dL (14.0-18.0) L Hematocrit 36.2 % (42-54) L Mean Corpuscular Volume 81.0 fL (79-99) Mean Corpuscular Hemoglobin 25.5 pg (27.0-33.0) L Mean Corpuscular Hemoglobin Concent 31.5 g/dL (32.0-36.0) L Red Cell Distribution Width 17.3 % (11.0-15.5) H Platelet Count 314 K/uL (130-400) Mean Platelet Volume 10.6 fL (7.5-10.5) H Immature Granulocyte % (Auto) 0.2 % (0-1) Neutrophils (%) (Auto) 63.5 % (40.0-77.0) Lymphocytes (%) (Auto) 25.3 % (21.0-51.0) Monocytes (%) (Auto) 7.5 % (3.0-13.0) Eosinophils (%) (Auto) 3.1 % (0.0-8.0) Basophils (%) (Auto) 0.4 % (0.0-5.0) Neutrophils # (Auto) 6.7 K/uL (1.8-7.7) Lymphocytes # (Auto) 2.7 K/uL (1.0-4.8) Monocytes # (Auto) 0.8 K/uL (0.1-1.0) Eosinophils # (Auto) 0.33 K/uL (0.00-0.70) Basophils # (Auto) 0.04 K/uL (0.00-0.20) Absolute Immature Granulocyte (auto 0.02 K/uL (0-1) Nucleated Red Blood Cells 0.0 % (0.0-0.19) Sodium Level 134 mmol/L (136-145) L Potassium Level 3.2 mmol/L (3.5-5.1) L Chloride Level 99 mmol/L (101-111) L Carbon Dioxide Level 30 mmol/L (21-32) Blood Urea Nitrogen 12 mg/dL (7-18) Creatinine 0.4 mg/dL (0.5-1.3) L Glomerular Filtration Rate Calc 119 mL/min (>90) Random Glucose 131 mg/dL (70-105) H Total Calcium 8.6 mg/dL (8.5-10.1) Total Bilirubin 0.3 mg/dL (0.2-1.0) Direct Bilirubin 0.2 mg/dL (0.0-0.3) Aspartate Amino Transf (AST/SGOT) 16 U/L (10-37) Alanine Aminotransferase (ALT/SGPT) 16 U/L (12-78) Alkaline Phosphatase 70 U/L (50-136) Total Protein 7.7 g/dL (6.0-8.3) Albumin 2.5 g/dL (3.5-5.0) L ED Course ED Course Orders Procedure Category Date Status Time Ketorolac PHA 04/07/25 Complete Tromethamine 15mg/Ml 00:30 Cbc With Differential LAB 04/07/25 Complete 00:22 Basic Metabolic Panel LAB 04/07/25 Complete 00:22 Iohexol (Omnipaque) PHA 04/07/25 Complete 01:14 Ct Abdomen/Pelvis CT 04/07/25 Resulted W/Contrast 00:20 Ct Chest W/O Contrast CT 04/07/25 Resulted 01:34 Simethicone (Mylicon) PHA 04/07/25 Complete 02:00 Us Abdominal Ruq\Ltd US 04/07/25 Resulted 03:08 Hepatic Function Panel LAB 04/07/25 Complete 03:46 Current Medications Medications (Trade) Dose Ordered Sig/Sandy Route PRN Reason Start Time Stop Time Status Last Admin Dose Admin Iohexol (Omnipaque) 75 ml STK-MED ONCE IV 04/07/25 01:14 04/07/25 01:14 DC Ketorolac Tromethamine (toRADol) 15 mg ONCE ONCE IV 04/07/25 00:30 04/07/25 00:31 DC 04/07/25 00:43 Simethicone (Mylicon) 160 mg ONCE ONCE PO 04/07/25 02:00 04/07/25 02:01 DC 04/07/25 01:55 Vital Signs Date Time Temp Pulse Resp B/P (MAP) Pulse Ox O2 Delivery O2 Flow Rate FiO2 04/07/25 03:10 79 19 130/67 99 Nasal Cannula* 3 32 04/06/25 23:49 98.1 76 20 110/57 96 Room Air Medical Decision Making MDM Patient is a 69 year old male with a past medical history of spinal quarter injury, trach and PEG, presents to the ER complaining of abdominal pain around the PEG tube. Patient said that he is not using the PEG tube too much since he has already tolerating oral diet. Abdominal pain around the PEG tube. CT abdomen ordered and reports a possible cholelithiasis/cholecystitis. Also constipation was visualized. I received a call from radiology regarding pleural effusion in the CT abdomen, we decided to add CT of chest. CT of chest shows a large pleural effusion on the right side. There is a large loculated pleural effusion on the right side, measuring about 13.8 x 19.3 x 24 cm, with compressive atelectasis in the right upper, middle, and lower lobes of the lung, more severe in the middle and lower lobes. Mild subsegmental atelectasis and infiltrates in the left lingula and lower lobe of the lung. There are a few scattered pulmonary nodules in the left upper and lower lobes of the lung, the largest measures up to 0.4 cm. Recommend a follow-up CT chest at 12 months. Trace pericardial effusion. Inspissated mucus within the right posterior aspect of the trachea that extends to the right main bronchus, with completely obscured and mucous plugging in the right middle and lower lobe bronchi. Ketorolac for pain ordered Simethicone for gas pain Ultrasound of right upper quadrant to rule out cholecystitis ordered We will re-evaluate the patient's, we will review ultrasound of upper quadrant. Patient was re-evaluate the bedside, he said he willing to go home, I explained to him that is not safe for him to go home since he is large pleural effusion. Also he can possible have a acute cholecystitis which is inflammation of his gallbladder. If patient decided to go home he will go against medical advice. Patient decided that he wanted to go home against medical advice. DX & DISP Disposition: AMA Departure Impression: Primary Impression: Pleural effusion Additional Impressions: Abdominal pain, Cholelithiasis Condition: Stable Referrals: GENIA NEWBY MD (PCP) ELTY OTT MD Apr 07, 2025 00:25
[2025-04-07 00:47] LABS: IMMATURE GRANULOCYTE ABSOLUTE 0.02 K/uL (0-1); NUCLEATED RED BLOOD CELLS 0.0 % (0.0-0.19); PLATELET COUNT (AUTO) 314 K/uL (130-400); RED BLOOD CELL COUNT(AUTO) 4.47 MIL/uL (4.50-6.20); RED CELL DISTRIBUTION WIDTH 17.3 % (11.0-15.5); WHITE BLOOD COUNT (AUTO) 10.6 K/uL (4.8-10.8)
[2025-04-07 00:55] LABS: CREATININE 0.4 mg/dL (0.5-1.3); GLOMERULAR FILTR. RATE CALC 119.0 mL/min (>90); GLUCOSE,RANDOM 131.0 mg/dL (70-105); SODIUM SERUM 134.0 mmol/L (136-145); UREA NITROGEN, BLOOD 12.0 mg/dL (7-18)
[2025-04-07] MEDS ORDERED: IOHEXOL-350 75 ML VIAL IV ONE (01:14)
[2025-04-07] MEDS: SIMETHICONE 80 MG TAB.CHEW PO ONE (01:55)
--- NOTE | 2025-04-07 02:58 | HMCIMG ---
EXAM: CT Abdomen and Pelvis with IV contrast. CLINICAL HISTORY: Pain. TECHNIQUE: Thin collimated axial CT images of the abdomen and pelvis were obtained with IV contrast, with sagittal and coronal reformatted images also submitted. A CT scan is done according to ALARA (As Low As Reasonably Achievable). CONTRAST: Omnipaque 350. COMPARISON: CT scan of the abdomen and pelvis. 08/20/2022. FINDINGS: Chest findings have been described with the dedicated CT scan of the chest. There is no focal abnormality appreciated within the liver, pancreas, spleen, adrenals, or kidneys. The gallbladder is distended with punctate densities in the dependent portion of the gallbladder lumen, mild wall thickening and pericholecystic fluid. There is a PEG tube within the stomach. There is no obvious bowel wall thickening. Bowel loops are normal in caliber without evidence of obstruction or ileus. Moderate to severe constipation. Small umbilical hernia containing fat. The appendix is unremarkable. There is no abnormality within the urinary bladder. Unremarkable reproductive organs. No lymphadenopathy. No free fluid. No pneumoperitoneum. Patchy atherosclerotic calcifications of the aorta and its major branches. There is no acute osseous abnormality. Osteopenia. Thoracolumbar spondylosis. Chronic and a wedge compression fracture with 10% to 20% reduction in height of the T12 and L1 vertebral bodies. IMPRESSIONS: Questionable cholelithiasis and acute cholecystitis, interval worsening in this finding, recommend ultrasound of the gallbladder for an optimal evaluation. Moderate to severe constipation. Increased since prior. PEG tube within the stomach. Small stable umbilical containing fat. /[place]
--- NOTE | 2025-04-07 03:04 | HMCIMG ---
EXAM: Non-contrast CT examination of the chest CLINICAL HISTORY: Shortness of breath. TECHNIQUE: Thin collimated axial CT images of the chest were obtained, with sagittal and coronal reformatted images also submitted. A CT scan is done according to ALARA (As Low as Reasonably Achievable). CONTRAST USED: None. COMPARISON: None provided. FINDINGS: There is a large loculated pleural effusion on the right side, measuring about 13.8 x 19.3 x 24 cm, with compressive atelectasis in the right upper, middle, and lower lobes of the lung, more severe in the middle and lower lobes. Mild subsegmental atelectasis and infiltrates in the left lingula and lower lobe of the lung. There are a few scattered pulmonary nodules in the left upper and lower lobes of the lung, the largest measures up to 0.4 cm. Trace pericardial effusion. The cardiac size is within normal limits. Calcific atherosclerotic disease in the thoracic aorta and coronary arteries. Inspissated mucus within the right posterior aspect of the trachea that extends to the right main bronchus, with completely obscured and mucous plugging in the right middle and lower lobe bronchi. The abdominal findings have been described separately under the CT abdomen and pelvis report from the same date. No acute bony abnormality is evident. Degenerative osseous changes. Chronic anterior wedge compression fracture of the T12 and L1 vertebral bodies. IMPRESSION: There is a large loculated pleural effusion on the right side, measuring about 13.8 x 19.3 x 24 cm, with compressive atelectasis in the right upper, middle, and lower lobes of the lung, more severe in the middle and lower lobes. Mild subsegmental atelectasis and infiltrates in the left lingula and lower lobe of the lung. There are a few scattered pulmonary nodules in the left upper and lower lobes of the lung, the largest measures up to 0.4 cm. Recommend a follow-up CT chest at 12 months. Trace pericardial effusion. Inspissated mucus within the right posterior aspect of the trachea that extends to the right main bronchus, with completely obscured and mucous plugging in the right middle and lower lobe bronchi. /[place]
[2025-04-07 04:27] LABS: ASPARTATE AMINOTRANSFERASE 16.0 U/L (10-37); TOTAL PROTEIN, SERUM 7.7 g/dL (6.0-8.3)
--- NOTE | 2025-04-07 04:40 | HMCIMG ---
EXAM: US Abdomen, Right Upper Quadrant. CLINICAL HISTORY: Cholecystitis TECHNIQUE: Right upper quadrant sonography performed with image documentation. COMPARISON: None provided. FINDINGS: The liver measures 17.6 cm. Borderline enlargement of the liver. Normal hepatic parenchymal texture. Heterogeneous structure with vascularity within the gallbladder involving the neck, body, and fundus, with a thickened gallbladder wall measuring up to 3 mm. The CBD is within normal limits and measures up to 5 mm in diameter. The pancreas is obscured due to the bowel gases. The right kidney measures 10.3 x 3.6 x 5.6 cm. It is normal in size and texture. Incidental right pleural effusion. IMPRESSION: Questionable sludge ball versus mass within the gallbladder lumen. Mildly thickened gallbladder wall. There may be a possibility of acute cholecystitis. Recommend a HIDA scan for further evaluation. /[place]
[2025-04-07 04:42] VITALS: BP 139/67; PULSE 69; RESP 18; TEMP 98.4; O2SAT 100
--- NOTE | 2025-04-07 04:44 | NUR ---
PATIENT DECIDES HE WANTS TO LEAVE AMA, RISKS ADVISED BY DR ROBERTSON. PATIENT ADMIMENT ON LEAVING AND CONSULTING WITH PCP LATER TODAY. PATIENT SIGNS AMA FORM
== END 2025-04-07 04:45 | disposition left against medical advice (07) ==
LOC: EDH 23:40
DX: K80.20 Calculus of gallbladder without cholecystitis without obstruction (principal); J90 Pleural effusion, not elsewhere classified; E78.00 Pure hypercholesterolemia, unspecified; J44.9 Chronic obstructive pulmonary disease, unspecified; F17.200 Nicotine dependence, unspecified, uncomplicated; M19.90 Unspecified osteoarthritis, unspecified site; Z79.899 Other long term (current) drug therapy; Z88.5 Allergy status to narcotic agent
CPT/HCPCS: 99285; 80076; 80048; 85025; 36415; 71250; 96374; 76705; 74177; J1885; Q9967

== ENCOUNTER 2025-04-28 23:22 | Emergency (ER) | payer OTHER, MEDICAID ==
[~2025-04-28] VITALS: Ht 167.6 cm; Wt 59.0 kg
--- NOTE | 2025-04-28 23:35 | NUR ---
PT CARE ASSUMED AT THIS TIME
--- NOTE | 2025-04-28 23:49 | ERN ---
ED Note History of Present Illness Stated Complaint: C/O ABD PAIN WITH N X V WITH CONSTIPATION Chief Complaint: Abdominal Pain Time Seen by MD: 23:32 Time Seen by Midlevel: 23:32 Dictation: The patient is a 70-year-old male with a history of COPD, dysphagia, GERD, muscle weakness, hypotension, spinal cord injury who presents to the emergency department with complaints of low blood pressure and two episodes of nonbloody vomiting onset this morning. Per family member patient's blood pressure is usually low but they give his prescribed midodrine and unusually comes up but reports that it has been staying low. Patient otherwise denies any fevers. Did report an episode of nonbloody diarrhea. Reports pain to PEG tube but reports the PEG tube pain is there most of the time. Allergies: Coded Allergies: No Known Drug Allergies (Verified Allergy, Unknown, 03/22/25) tramadol (Unverified Allergy, Unknown, 03/22/25) Home Meds Active Scripts Levetiracetam (Keppra) 500 Mg Tablet, 500 MG PO BID for 30 Days, #60 TAB 0 Refills Prov:DEWEY MCKAY [employer]LL[employer] OFFICER 08/23/23 Polyethylene Glycol 3350 (Miralax) 17 Gm Powd.pack, 17 GM PO DAILY, #1 CANISTER Prov:ALEXIS SALGUEROP 08/20/22 Gabapentin (Neurontin) 300 Mg Capsule, 300 MG PO BID, #60 CAP Prov:ROSETTA TEIXEIRA PA 11/21/21 Reported Medications Ferrous Sulfate (Iron) 325 Mg (65 Mg Iron) Tablet, 1 TAB PEG AM for 30 Days, #60 TAB 0 Refills 03/22/25 [Levetiracetam ] No Conflict Check, 500 MG PEG BID 03/22/25 Multivitamin (Multi Vitamin Daily) 1 Each Tablet, 1 TAB PEG DAILY for 30 Days, #30 TAB 0 Refills 03/22/25 Sennosides (Senna) 8.6 Mg Tablet, 1 TAB PEG AM for constipation for 25 Days, #100 TAB 0 Refills 03/22/25 Thiamine HCl (Vitamin B-1) 100 Mg Tablet, 1 TAB PEG DAILY for 30 Days, #30 TAB 0 Refills 03/22/25 Simethicone (Simethicone) 80 Mg Tab.chew, 1 TAB PEG Q6HPRN for 6 Days, #20 TAB 0 Refills 03/22/25 Midodrine HCl (Midodrine HCl) 5 Mg Tablet, 1 TAB PEG TID for 30 Days, #90 TAB 0 Refills 03/22/25 [Cymbalta] No Conflict Check, 20 MG PEG AM 03/22/25 Lactulose (Lactulose) 10 Gram/15 Ml Solution, 30 ML PO BID for constipation, #500 ML 0 Refills 03/22/25 Finasteride (Finasteride) 5 Mg Tablet, 1 TAB PO DAILY for 30 Days, #30 TAB 0 Refills 03/22/25 Methocarbamol (Methocarbamol) 500 Mg Tablet, 1 TAB PO Q6HPRN for 30 Days, #90 TAB 0 Refills 03/22/25 Past Medical History Past Medical History: Other Additional Past Medical Hx: UMBILICAL HERNIA Surgical History: Other Surgical History Other: LOWER BACK SURGERY Family History: Negative Social History: Smokers, ETOH, Lives with family, Other RN Note Reviewed/Agreed w/PFSH: Yes Review of System Dictation Constitutional: Negative for fever,chills, and weight loss Eyes: Negative for injury, pain,redness, and discharge ENT: Negative for injury,pain or swelling Cardiovascular: Negative for chest pain, palpitations, and edema Respiratory: Negative for shortness of breath, cough, and wheezing, Abdomen/GI: Negative for a constipation positive for abdominal pain, nausea, vomiting, diarrhea, and Back: Negative for injury and pain : Negative for injury, bleeding and discharge MS/Extremity: Negative for injury and deformity Skin: Negative for rash, and discoloration Neuro: Negative for headache, weakness, numbness, tingling, and seizure Psych: Negative for suicide ideation, homicidal ideation, and hallucinations Initial Vital Sign VS Vital Signs Date Time Temp Pulse Resp B/P (MAP) Pulse Ox O2 Delivery O2 Flow Rate FiO2 04/28/25 23:25 97.0 85 20 99/58 94 Nasal Cannula 2.0 04/28/25 23:50 21 Physical Exam Dictation Vital Signs reviewed General Appearance: Alert, oriented x 3, no acute distress, ill appearing Head and Face: non-traumatic. Eyes: PERRL, pink conjunctivas, eyelid no trauma, anterior chamber with arcus senilis. Ears: Pinnas intact and no signs of trauma or erythema ear canals clear and no discharge TM no erythema Nose: No discharge, no bleeding. Oropharynx: Mouth normal, tongue pink. pharynx clear,no erythema, tonsils no exudates, no abscesses noted, mucous membrane moist Neck: Supple, non-tender, no thyromegaly, no masses, no JVD, no bruits Breast:Deferred Chest:No tenderness, no crepitus, no paradoxical movement, no retractions Lungs:Clear, well-ventilated, symmetric, no rales, no wheezing, no rhonchi, no stridor, good breath sounds bilaterally Heart: Regular rate, regular rhythm, no murmur, no gallops Vascular: no peripheral edema, Abdomen: Soft, positive bowel sounds, nondistended, no guarding, nontender, no rebound, no masses no hepatomegaly, no splenomegaly, no Koo's sign, no hernias. Rectal: Deferred Genital: Deferred Neurological: Normal speech, Musculoskeletal: Neck nontender, full range of motion, back nontender, full range of motion, Extremities: nontender, Skin: Color pink, dry, no turgor, no rash, no lacerations, no abrasions, no contusions. Lymphatic: Deferred Results (Laboratory/Radiology) Laboratory/Radiology Laboratory Tests Test 04/29/25 00:09 White Blood Count 10.1 K/uL (4.8-10.8) Red Blood Count 3.87 MIL/uL (4.50-6.20) L Hemoglobin 9.8 g/dL (14.0-18.0) L Hematocrit 32.1 % (42-54) L Mean Corpuscular Volume 82.9 fL (79-99) Mean Corpuscular Hemoglobin 25.3 pg (27.0-33.0) L Mean Corpuscular Hemoglobin Concent 30.5 g/dL (32.0-36.0) L Red Cell Distribution Width 17.0 % (11.0-15.5) H Platelet Count 417 K/uL (130-400) H Mean Platelet Volume 10.2 fL (7.5-10.5) Immature Granulocyte % (Auto) 0.3 % (0-1) Neutrophils (%) (Auto) 65.6 % (40.0-77.0) Lymphocytes (%) (Auto) 23.9 % (21.0-51.0) Monocytes (%) (Auto) 7.5 % (3.0-13.0) Eosinophils (%) (Auto) 2.2 % (0.0-8.0) Basophils (%) (Auto) 0.5 % (0.0-5.0) Neutrophils # (Auto) 6.6 K/uL (1.8-7.7) Lymphocytes # (Auto) 2.4 K/uL (1.0-4.8) Monocytes # (Auto) 0.8 K/uL (0.1-1.0) Eosinophils # (Auto) 0.22 K/uL (0.00-0.70) Basophils # (Auto) 0.05 K/uL (0.00-0.20) Absolute Immature Granulocyte (auto 0.03 K/uL (0-1) Nucleated Red Blood Cells 0.0 % (0.0-0.19) Red Blood Cell Morphology ANISO 1+ Prothrombin Time 11.4 SEC (9.6-11.6) Prothromb Time International Ratio 1.08 (0.85-1.15) Activated Partial Thromboplast Time 31.4 SEC (26.3-35.5) Sodium Level 135 mmol/L (136-145) L Potassium Level 3.3 mmol/L (3.5-5.1) L Chloride Level 99 mmol/L (101-111) L Carbon Dioxide Level 30 mmol/L (21-32) Blood Urea Nitrogen 14 mg/dL (7-18) Creatinine 0.5 mg/dL (0.5-1.3) Glomerular Filtration Rate Calc 110 mL/min (>90) Random Glucose 154 mg/dL (70-105) H Lactic Acid Level 1.3 mmol/L (0.8-2.5) Total Calcium 8.6 mg/dL (8.5-10.1) Total Bilirubin 0.3 mg/dL (0.2-1.0) Aspartate Amino Transf (AST/SGOT) 14 U/L (10-37) Alanine Aminotransferase (ALT/SGPT) 12 U/L (12-78) Alkaline Phosphatase 69 U/L (50-136) Total Creatine Kinase 24 U/L (21-232) # Troponin I High Sensitivity 7 ng/L (4-75) B-Type Natriuretic Peptide 15 pg/mL (0-100) Total Protein 7.5 g/dL (6.0-8.3) Albumin 2.4 g/dL (3.5-5.0) L Lipase 24 U/L (16-77) REASON: cp ORDERING PHYSICIAN: SOLA CAMPBELL PROCEDURE: CXR1VW - CHEST 1VW EXAM: CR Chest, 1 view CLINICAL HISTORY: Chest pain. COMPARISON: CT chest dated 04/07/2025. FINDINGS: Large pleural effusion on the right side with compressive atelectasis in the underlying right lung. Patchy infiltrates in the left lung connelly, more pronounced in the left lower zone. No pneumothorax. The cardiomediastinal silhouette is within normal limits. No acute osseous abnormality. Metal implant in the cervical spine. IMPRESSION: Large pleural effusion on the right side with compressive atelectasis in the underlying right lung. Patchy infiltrates in the left lung connelly, more pronounced in the left lower zone. No gross changes within the limits of cross-modality comparison. /[place] REASON: ABD PAIN ORDERING PHYSICIAN: SOLA CAMPBELL [facility] PROCEDURE: CAP WO - CT CHEST/ABD/PELV W/O CONTRAST 1. EXAM: CT Chest without IV contrast. CLINICAL HISTORY: Abdominal pain. TECHNIQUE: Thin-section axial CT through the thorax without intravenous contrast. Coronal, sagittal, and MIP reformation were generated on the same workstation. CT scan done according to ALARA (As Low as Reasonably Achievable). CONTRAST USED: None. COMPARISON: Prior CT chest dated 04/07/25. FINDINGS: There is a large stable loculated pleural effusion on the right side, with compressive atelectasis in the right upper, middle, and lower lobes of the lung, more severe in the middle and lower lobes. Mild subsegmental atelectasis and infiltrates in the left lingula and lower lobe of the lung. There are a few stable scattered pulmonary nodules in the left upper and lower lobes of the lung. Trace pericardial effusion. The cardiac size is within normal limits. Calcific atherosclerotic disease in the thoracic aorta and coronary arteries. Inspissated mucus within the right posterior aspect of the trachea that extends to the right main bronchus, with completely obscured and mucous plugging in the right middle and lower lobe bronchi. Mildly dilated and fluid-filled esophagus. No acute bony abnormality is evident. Degenerative osseous changes. Chronic anterior wedge compression fracture of the T12 and L1 vertebral bodies. IMPRESSION: There is a large stable loculated pleural effusion on the right side, with compressive atelectasis in the right upper, middle, and lower lobes of the lung, more severe in the middle and lower lobes. Mild subsegmental atelectasis and infiltrates in the left lingula and lower lobe of the lung. There are a few stable scattered pulmonary nodules in the left upper and lower lobes of the lung. Mildly dilated and fluid-filled esophagus. No interval change. 2. EXAM: CT Abdomen and Pelvis without IV contrast. CLINICAL HISTORY: Abdominal pain. TECHNIQUE: Thin collimated axial CT images of the abdomen and pelvis were obtained, with sagittal and coronal reformatted images also submitted. A CT scan is done according to ALARA (As Low As Reasonably Achievable). CONTRAST: None. COMPARISON: Prior CT abdomen and pelvis dated 04/07/25. FINDINGS: There is no focal abnormality appreciated within the liver, pancreas, spleen, adrenals, or kidneys. The gallbladder is distended with punctate densities in the dependent portion of the gallbladder lumen with mild wall thickening. There is a PEG tube within the stomach. There is no obvious bowel wall thickening. Bowel loops are normal in caliber without evidence of obstruction or ileus. Moderate to severe constipation. Small umbilical hernia containing fat. The appendix is unremarkable. There is no abnormality within the urinary bladder. Unremarkable reproductive organs. No lymphadenopathy. No free fluid. No pneumoperitoneum. Patchy atherosclerotic calcifications of the aorta and its major branches. There is no acute osseous abnormality. Osteopenia. Thoracolumbar spondylosis. Chronic and a wedge compression fracture of the T12 and L1 vertebral bodies. IMPRESSIONS: Stable cholelithiasis with mild wall thickening. Further follow-up with the ultrasound of the gallbladder is suggested to rule out the possibility of acute cholecystitis Stable constipation. PEG tube within the stomach. No interval change. /[place] Labs Reviewed?: Yes EKG: (+) rhythm (Sinus rhythm) EKG Comment: Date:04/29/2025 Time:0018 Ventricular rate:80 AR interval:140 QRS duration:96 QT/QTc:376/434 EKG interpretation: Sinus rhythm Reviewed by ED Attending No stemi ED Course ED Course Orders Procedure Category Date Status Time Cbc With Differential LAB 04/28/25 Complete 23:46 Comprehensive LAB 04/28/25 Complete Metabolic Panel 23:46 Troponin I High LAB 04/28/25 Complete Sensitivity 23:46 Urinalysis Profile LAB 04/28/25 Logged 23:46 12 Lead Ekg Tracing- EKG 04/28/25 Logged Technical 23:46 0.9%Nacl 1000ml (Ns PHA 04/29/25 In Process 1000ml) 00:00 Ondansetron 4mg Inj PHA 04/29/25 Complete (Zofran 4mg Inj) 00:00 Pantoprazole 40mg Inj PHA 04/29/25 Complete (Protonix 40mg Inj 00:00 Creatine Kinase, Total LAB 04/28/25 Complete 23:46 Chest 1vw RAD 04/28/25 Resulted 23:46 Lipase LAB 04/28/25 Complete 23:46 Lactic Acid LAB 04/28/25 Complete 23:46 B-Type Natriuretic LAB 04/28/25 Complete Peptide 23:46 Ct Chest/Abd/Pelv W/O CT 04/28/25 Resulted Contrast 23:46 Pt And Ptt LAB 04/29/25 Complete 01:30 Chest 1vw RAD 04/29/25 Resulted 02:42 Chest 1vw RAD 04/29/25 Taken 05:00 Hydrocodone/Apap PHA 04/29/25 Complete Tab ([place] 10) 05:30 Current Medications Medications (Trade) Dose Ordered Sig/[place]andy Route PRN Reason Start Time Stop Time Status Last Admin Dose Admin Acetaminophen/ Hydrocodone Bitart (NORco 10) 1 tab ONCE ONCE PO 04/29/25 05:30 04/29/25 05:31 DC Ondansetron HCl (zoFRAN 4MG INJ) 4 mg ONCE ONCE IVP 04/29/25 00:00 04/29/25 00:01 DC 04/29/25 01:11 Pantoprazole Sodium (PROTonix 40MG INJ) 40 mg ONCE ONCE IVP 04/29/25 00:00 04/29/25 00:01 DC 04/29/25 01:09 Sodium Chloride 1,000 ml @ 125 mls/hr ONCE ONCE IV 04/29/25 00:00 04/29/25 07:59 Vital Signs Date Time Temp Pulse Resp B/P (MAP) Pulse Ox O2 Delivery O2 Flow Rate FiO2 04/29/25 03:26 80 15 117/60 98 Room Air* 0 21 04/29/25 01:29 80 16 119/68 98 Room Air* 0 21 04/28/25 23:50 98.1 82 16 100/52 98 Room Air* 0 21 04/28/25 23:25 97.0 85 20 99/58 94 Nasal Cannula 2.0 Medical Decision Making MDM The patient is a 70-year-old male with a history of COPD, dysphagia, GERD, muscle weakness, hypotension, spinal cord injury who presents to the emergency department with complaints of low blood pressure and two episodes of nonbloody vomiting onset this morning. Per family member patient's blood pressure is usually low but they give his prescribed midodrine and unusually comes up but reports that it has been staying low. Patient otherwise denies any fevers. Did report an episode of nonbloody diarrhea. Reports pain to PEG tube but reports the PEG tube pain is there most of the time. CBC showed no leukocytosis, mild normocytic anemia, chemistry showed mild hypo kalemia, hypochloremia, hyponatremia, normal renal function, negative lipase, negative troponin, negative BNP. CT this abdomen and pelvis showed large stable loculated pleural effusion of the right side, stable constipation, single cholelithiasis. Differential diagnosis: Dehydration, sepsis, electrolyte imbalance, acute kidney injury, gastroenteritis Discussed with patient admission due to large pleural effusion. Patient at this time does not want to be admitted to the hospital. We performed a thoracentesis and removed most of the fluid from the patient's right lung. Postprocedure x-ray showed a pneumatocele. We repeated the chest x-ray 2 hours later and them pneumatocele was stable. I briefly discussed the patient with Dr. Curtis and he agreed that it was safe to discharge the patient and follow-up with his compliance officer. The patient had made it clear to me that he was going to leave the hospital anyway and that he would not want to be admitted. Procedure Progress Thoracentesis. Using ultrasound we marked the skin where the clearest path to the pulmonary effusions would be accessed without damaging the underlying lung parenchyma. The patient's posterior chest wall was sterilely prepped and draped and then injected with lidocaine. Thoracentesis catheter was inserted and 1.8 L of bloody fluid was removed. Postprocedure chest x-ray showed a large right-sided pneumatocele. DX & DISP Disposition: Discharge Departure Impression: Primary Impression: Hemothorax Additional Impression: Pneumatocele of lung Condition: Stable Additional Instructions: You had a large fluid collection on your right lung. It has reaccumulated since the last time your lung was drained two weeks ago. I removed the fluid collection and discovered a pneumatocele, which is a large trapped air collection. You should follow-up with your compliance officer sooner rather than later. Please return to the emergency room if you have difficulty breathing or chest pain. I do not know the cause of your recurrent pulmonary effusions nor do I know why they are so bloody. I suspect an infection but please follow-up with your compliance officer for definitive diagnosis. Referrals: ANNALISA MCGRAW MD (PCP) SOLA CAMPBELL Apr 28, 2025 23:49 DI LAMB MD Apr 29, 2025 06:23
[2025-04-29] MEDS: 0.9%NACL 1000ML 1,000 ML IV ONE (00:29)
--- NOTE | 2025-04-29 00:29 | NUR ---
PER DATACAP DEVELOPER SOAL FLUIDS IS TO BE HELD AT THIS TIME.
[2025-04-29 00:35] LABS: IMMATURE GRANULOCYTE ABSOLUTE 0.03 K/uL (0-1); NUCLEATED RED BLOOD CELLS 0.0 % (0.0-0.19); PLATELET COUNT (AUTO) 417 K/uL (130-400); RED BLOOD CELL COUNT(AUTO) 3.87 MIL/uL (4.50-6.20); RED CELL DISTRIBUTION WIDTH 17.0 % (11.0-15.5); WHITE BLOOD COUNT (AUTO) 10.1 K/uL (4.8-10.8)
[2025-04-29 00:41] LABS: CREATININE 0.5 mg/dL (0.5-1.3); GLOMERULAR FILTR. RATE CALC 110.0 mL/min (>90); GLUCOSE,RANDOM 154.0 mg/dL (70-105); SODIUM SERUM 135.0 mmol/L (136-145); UREA NITROGEN, BLOOD 14.0 mg/dL (7-18)
[2025-04-29 00:45] LABS: ASPARTATE AMINOTRANSFERASE 14.0 U/L (10-37); CREATINE KINASE, TOTAL 24.0 U/L (21-232); TOTAL PROTEIN, SERUM 7.5 g/dL (6.0-8.3)
--- NOTE | 2025-04-29 01:33 | HMCIMG ---
1. EXAM: CT Chest without IV contrast. CLINICAL HISTORY: Abdominal pain. TECHNIQUE: Thin-section axial CT through the thorax without intravenous contrast. Coronal, sagittal, and MIP reformation were generated on the same workstation. CT scan done according to ALARA (As Low as Reasonably Achievable). CONTRAST USED: None. COMPARISON: Prior CT chest dated 04/07/25. FINDINGS: There is a large stable loculated pleural effusion on the right side, with compressive atelectasis in the right upper, middle, and lower lobes of the lung, more severe in the middle and lower lobes. Mild subsegmental atelectasis and infiltrates in the left lingula and lower lobe of the lung. There are a few stable scattered pulmonary nodules in the left upper and lower lobes of the lung. Trace pericardial effusion. The cardiac size is within normal limits. Calcific atherosclerotic disease in the thoracic aorta and coronary arteries. Inspissated mucus within the right posterior aspect of the trachea that extends to the right main bronchus, with completely obscured and mucous plugging in the right middle and lower lobe bronchi. Mildly dilated and fluid-filled esophagus. No acute bony abnormality is evident. Degenerative osseous changes. Chronic anterior wedge compression fracture of the T12 and L1 vertebral bodies. IMPRESSION: There is a large stable loculated pleural effusion on the right side, with compressive atelectasis in the right upper, middle, and lower lobes of the lung, more severe in the middle and lower lobes. Mild subsegmental atelectasis and infiltrates in the left lingula and lower lobe of the lung. There are a few stable scattered pulmonary nodules in the left upper and lower lobes of the lung. Mildly dilated and fluid-filled esophagus. No interval change. 2. EXAM: CT Abdomen and Pelvis without IV contrast. CLINICAL HISTORY: Abdominal pain. TECHNIQUE: Thin collimated axial CT images of the abdomen and pelvis were obtained, with sagittal and coronal reformatted images also submitted. A CT scan is done according to ALARA (As Low As Reasonably Achievable). CONTRAST: None. COMPARISON: Prior CT abdomen and pelvis dated 04/07/25. FINDINGS: There is no focal abnormality appreciated within the liver, pancreas, spleen, adrenals, or kidneys. The gallbladder is distended with punctate densities in the dependent portion of the gallbladder lumen with mild wall thickening. There is a PEG tube within the stomach. There is no obvious bowel wall thickening. Bowel loops are normal in caliber without evidence of obstruction or ileus. Moderate to severe constipation. Small umbilical hernia containing fat. The appendix is unremarkable. There is no abnormality within the urinary bladder. Unremarkable reproductive organs. No lymphadenopathy. No free fluid. No pneumoperitoneum. Patchy atherosclerotic calcifications of the aorta and its major branches. There is no acute osseous abnormality. Osteopenia. Thoracolumbar spondylosis. Chronic and a wedge compression fracture of the T12 and L1 vertebral bodies. IMPRESSIONS: Stable cholelithiasis with mild wall thickening. Further follow-up with the ultrasound of the gallbladder is suggested to rule out the possibility of acute cholecystitis Stable constipation. PEG tube within the stomach. No interval change. /[place]
--- NOTE | 2025-04-29 01:42 | HMCIMG ---
EXAM: CR Chest, 1 view CLINICAL HISTORY: Chest pain. COMPARISON: CT chest dated 04/07/2025. FINDINGS: Large pleural effusion on the right side with compressive atelectasis in the underlying right lung. Patchy infiltrates in the left lung connelly, more pronounced in the left lower zone. No pneumothorax. The cardiomediastinal silhouette is within normal limits. No acute osseous abnormality. Metal implant in the cervical spine. IMPRESSION: Large pleural effusion on the right side with compressive atelectasis in the underlying right lung. Patchy infiltrates in the left lung connelly, more pronounced in the left lower zone. No gross changes within the limits of cross-modality comparison. /[place]
[2025-04-29 01:49] LABS: INR 1.08 (0.85-1.15)
--- NOTE | 2025-04-29 02:35 | NUR ---
PATIENT UNDERWENT BEDSIDE THORACENTESIS PREFORMED BY ED MD NEWMAN. PROCEDURE EXPLAINED TO PATIENT AND CONSENT DONE. PATIENT TOLERATED PROCEDURE WELL. PT EDUCATED TO REPORT INCREASED PAIN, SHORTNESS OF BREATH, OR BLEEDING. PT SHOWS NO SIGNS OF DISTRESS. EVEN AND UNLABORED BREATHING NOTED.
--- NOTE | 2025-04-29 04:23 | HMCIMG ---
EXAM: CR Chest, 1 view CLINICAL HISTORY: Post thoracocentesis. COMPARISON: Chest radiograph dated 04/29/2025. FINDINGS: The post-thoracocentesis radiograph demonstrates a significant reduction in the right-sided loculated pleural effusion with interval development of loculated pneumothorax, which measures about 16.2 x 7.2 cm in the craniocaudal and transverse dimensions. Compressive atelectasis in the right lung, more pronounced in the right mid to lower lobes. Stable small patchy infiltrates in the left lung with lower zone predominance. No acute osseous abnormality. IMPRESSION: The post-thoracocentesis radiograph demonstrates a significant reduction in the right-sided loculated pleural effusion with interval development of loculated pneumothorax, which measures about 16.2 x 7.2 cm in the craniocaudal and transverse dimensions. Compressive atelectasis in the right lung, more pronounced in the right mid to lower lobes. Stable small patchy infiltrates in the left lung with lower zone predominance. /[place]
--- NOTE | 2025-04-29 06:36 | HMCIMG ---
EXAM: CR Chest, single view. CLINICAL HISTORY: Pneumothorax. COMPARISON: Same-day chest radiograph FINDINGS: Moderate to large right-sided pneumothorax with collapse of the right lung and subsegmental atelectasis in the right lower lobe. Patchy areas of groundglass opacification in the left mid and lower zones. Blunting of the right costophrenic angle probably mild right-sided pleural effusion. The cardiomediastinal silhouette is within normal limits. No acute osseous abnormality. Posterior orthopedic fixation in the cervical spine. IMPRESSION: Moderate to large right-sided pneumothorax with collapse of the right lung and subsegmental atelectasis in the right lower lobe. Patchy areas of groundglass opacification in the left mid and lower zones. Blunting of the right costophrenic angle probably mild right-sided pleural effusion. Compared to the prior study, there is no significant interval change. /[place]
[2025-04-29 06:45] VITALS: BP 128/70; PULSE 71; RESP 18; TEMP 98.2; O2SAT 99
--- NOTE | 2025-04-29 06:52 | EKG ---
[facility] Test Date: 2025-04-29 Test Time: 00:18:04 Pat Name: JOSE LOVE Department: [facility] Patient ID: [id number] Room: Gender: M Hydropulper Operator: [id number] : 1955 Requested By: SLOA CAMPBELL Order Number: [id number] Reading MD: Elan Jacobs Measurements Intervals Cassandra Rate: 80 P: 80 GA: 140 QRS: -19 QRSD: 96 T: 72 QT: 376 QTc: 434 Interpretive Statements Sinus rhythm Probable anterolateral infarct, old Compared to ECG 08/23/2023 12:34:10 No significant changes Electronically Signed On 04-30-2025 10:54:20 CDT by Elan Jacobs Please click the below link to view image of tracing.
== END 2025-04-29 06:48 | disposition home or self-care (01) ==
LOC: EDH 23:22
DX: J94.2 Hemothorax (principal); J98.4 Other disorders of lung; F17.200 Nicotine dependence, unspecified, uncomplicated; Z79.899 Other long term (current) drug therapy; Z88.5 Allergy status to narcotic agent
CPT/HCPCS: 99285; 71250; 71045 ×3; 82550; 84484; 80053; 83880; 83690; 85025; 85610; 85730; 83605; 36415; 74176; 93005; 32555; 96374; 96375; J2405; J2470